=== PATIENT | female | born 1970 | race Caucasian/White ===

== ENCOUNTER 2017-12-17 22:03 | Emergency (ER) | payer BC ==
[2017-12-18] MEDS ORDERED: Ketorolac INJ* 60 MG/2 ML VIAL IM ONE (00:12)
[2017-12-18] MEDS ORDERED: Diazepam TAB(*) 5 MG PO ONE (00:12)
--- NOTE | 2017-12-18 00:15 | ED ---
Upper Extremity Pain - HPI Summary HPI Summary: Complains of right upper arm pain 5 days. Patient states she was working with a pump using her right arm and woke up with pain on the second day. Pain worse today. Pain initially relieved by ibuprofen, but not today. Patient denies loss of sensation or function, pain with movement of arm. Denies wrist, hand, elbow pain on right upper extremity. States she cannot elevate right shoulder without pain. Medical history is none. Denies prior similar symptoms. - History of Current Complaint Chief Complaint: EDExtremityUpper Stated Complaint: RT ARM PAIN Time Seen by Provider: 12/17/17 23:20 Hx Obtained From: Patient Mechanism Of Injury: Unknown Onset/Duration: Started Days Ago Timing: Intermittent Severity Initially: Mild Severity Currently: Severe Pain Location: Shoulder, Arm Character: Sharp Aggravating Factor(s): Movement, Abduction Alleviating Factor(s): Nothing Associated Signs & Symptoms: Positive: Negative - Allergies/Home Medications Allergies/Adverse Reactions: Allergies Allergy/AdvReac Type Severity Reaction Status Date / Time Sulfa (Sulfonamide Allergy Anaphylatic Verified 12/17/17 22:23 Antibiotics) Shock PMH/Surg Hx/FS Hx/Imm Hx Endocrine/Hematology History: Denies: Hx Anticoagulant Therapy Cardiovascular History: Denies: Hx Cardiac Arrest History: Denies: Hx Dialysis Neurological History: Denies: Hx CVA - Surgical History Surgery Procedure, Year, and Place: C SECTION 2008 APPENDECTOMY 1986 Infectious Disease History: No Infectious Disease History: Denies: Traveled Outside the [place] in Last 30 Days - Social History Alcohol Use: Occasionally Hx Substance Use: No Hx Tobacco Use: No Review of Systems Constitutional: Negative Eyes: Negative ENT: Negative Cardiovascular: Negative Respiratory: Negative Gastrointestinal: Negative Genitourinary: Negative Positive: Arthralgia, Myalgia Skin: Negative Neurological: Negative Psychological: Normal All Other Systems Reviewed And Are Negative: Yes Physical Exam - Summary Physical Exam Summary: PMS intact distally on right upper extremity. Qc Analyst strength normal. Patient has normal flexion and extension of right fingers, right wrist, right elbow. Patient has pain with abduction of right shoulder. No erythema, swelling, ecchymosis, deformity, extra warmth noted. Triage Information Reviewed: Yes Vital Signs On Initial Exam: Initial Vitals Temp Pulse Resp BP Pulse Ox 99.8 F 74 18 177/102 99 12/17/17 22:21 12/17/17 22:21 12/17/17 22:21 12/17/17 22:21 12/17/17 22:21 Vital Signs Reviewed: Yes Appearance: Positive: Well-Appearing Skin: Positive: Warm Head/Face: Positive: Normal Head/Face Inspection Eyes: Positive: Normal Neck: Positive: Supple Respiratory/Lung Sounds: Positive: Clear to Auscultation Cardiovascular: Positive: Normal Abdomen Description: Positive: Nontender Musculoskeletal: Positive: Normal Neurological: Positive: Normal Psychiatric: Positive: Normal AVPU Assessment: Alert - [place] Coma Scale Best Eye Response: 4 - Spontaneous Best Motor Response: 6 - Obeys Commands Best Verbal Response: 5 - Oriented Coma Scale Total: 15 Diagnostics - Vital Signs Vital Signs Temp Pulse Resp BP Pulse Ox 12/17/17 22:21 99.8 F 74 18 177/102 99 - Laboratory Lab Statement: Any lab studies that have been ordered have been reviewed, and results considered in the medical decision making process. - Radiology shoulder Xray Interpretation: No Acute Changes Radiology Interpretation Completed By: ED Physician Course/Dx - Course Course Of Treatment: Complains of right upper arm pain 5 days. Patient states she was working with a pump using her right arm and woke up with pain on the second day. Pain worse today. Pain initially relieved by ibuprofen, but not today. Patient denies loss of sensation or function, pain with movement of arm. Denies wrist, hand, elbow pain on right upper extremity. States she cannot elevate right shoulder without pain. Medical history is none. Denies prior similar symptoms. Physical exam:PMS intact distally on right upper extremity. Qc Analyst strength normal. Patient has normal flexion and extension of right fingers, right wrist, right elbow. Patient has pain with abduction of right shoulder. No erythema, swelling, ecchymosis, deformity, extra warmth noted. X-ray shoulder negative. Patient provided with sling, Rx for Flexeril area continue take ibuprofen. Rest extremity. If symptoms do not improve in 5 days follow-up with orthopedics Dr. Lane - Diagnoses Provider Diagnoses: Musculoskeletal pain Discharge - Sign-Out/Discharge Documenting (check all that apply): Patient Departure - Discharge Plan Condition: Stable Disposition: HOME Prescriptions: Cyclobenzaprine TAB* [Flexeril 10 MG TAB*] 10 mg PO TID PRN 3 Days #10 tab PRN Reason: Pain Patient Education Materials: Musculoskeletal Pain (ED) Referrals: Nish Shultz NP [Primary Care Provider] - Ochoa Lane MD [Medical Doctor] - Additional Instructions: Ice, rest ibuprofen for right arm pain. If your pain persists for longer than 5 days follow-up with orthopedics Dr Lane for further evaluation. Return to the ED for any new or worsening symptoms - Billing Disposition and Condition Condition: STABLE Disposition: Home
[2017-12-18 06:41] VITALS: BP 166/96
--- NOTE | 2017-12-18 07:47 | RAD ---
HISTORY: pain s/p injury COMPARISONS: None VIEWS: 4 , Frontal internal rotation, external rotation, outlet, and axillary views of the right shoulder FINDINGS: BONE DENSITY: Normal. BONES: There is no displaced fracture. JOINTS: There is no arthropathy. ALIGNMENT: There is no dislocation. SOFT TISSUES: There is soft tissue calcification along the greater tuberosity. OTHER FINDINGS: None. IMPRESSION: SOFT TISSUE CALCIFICATIONS SUGGESTIVE OF A CALCIFIC TENDINOPATHY. NO ACUTE OSSEOUS INJURY. IF SYMPTOMS PERSIST, RECOMMEND REPEAT IMAGING. R2
== END 2017-12-18 00:45 | disposition home or self-care (01) ==
LOC: ED 22:03
DX: M79.621 Pain in right upper arm (principal); Z88.2 Allergy status to sulfonamides
CPT/HCPCS: 99282; A9270-GY; J1885